=== PATIENT | male | born 1960 | race Caucasian/White ===

== ENCOUNTER → 2017-04-14 | Outpatient (CLI) | payer BC ==
[~2017-04-14] VITALS: Ht 182.9 cm; Wt 124.6 kg
[~2017-04-14] MED LIST: ACETAMINOPHEN325 M1 PO; ADULT LOW DOSE81 MG PO; AMITRIPTYLINE H25 M4 PO; ANDROGEL5 GM; ATORVASTATIN CA40 MG PO; BENTYL10 MG PO; BISACODYL SUPP10 MG RE; BYSTOLIC10 MG PO; CARVEDILOL6.25 MG PO; CIALIS20 MG PO; CIPROFLOXACIN500 M1 PO; CITRATE OF MAG296 ML PO; CO Q-10100 MG PO; CO Q-10400 MG PO; COLACE 100 MG100 MG PO; COLACE100 MG PO; CRESTOR20 MG PO; CYCLOBENZAPRINE10 MG PO; DAILY VALUE1 EACH PO; DILAUDID 4 MG TA4 M1 PO; DULCOLAX PO; DULCOLAX5 MG PO; EFFIENT10 MG PO; FENTANYL PA25 MCG/HR TP; FENTANYL PA50 MCG/HR TP; FISH OIL 1,001000 M1 PO; FISHOIL; FLONASE; HYDROCODON-ACE1 EAC5 PO; HYDROCODON-ACE1 EACH PO; HYDROCODONE-AP1 EACH PO; IBUPROFEN 200200 M1 PO; IMITREX 25 MG T25 MG PO; LANSOPRAZOLE30 M1 PO; LEVOTHYROXIN0.025 MG PO; LEVOTHYROXINE0.2 M1; LEVOTHYROXINE0.2 M1 PO; LOVENOX; MAGIC CUP PO; MAGOX 400400 MG PO; MELOXICAM7.5 MG PO; MOBIC15 MG PO; MOBIC7.5 MG PO; MULTAQ 400 MG400 MG PO; MULTIVITAMINS; MULTIVITAMINS OR; MYLANTA 12 OZ355 M1 GT; NABUMETONE 500500 M1 PO; NABUMETONE 750750 M1 PO; NAPROSYN375 MG PO; NAPROSYN500 MG PO; NAPROXEN 375 M375 M1 PO; NAPROXEN DELAY500 M1 PO; NEURONTIN600 MG PO; NORCO 10-325 T1 EACH PO; NORCO 5-325 TA1 EACH PO; NORCO 7.5-3251 EACH PO; NUCYNTA75 MG PO; NUGENIX PO; OMEPRAZOLE; OMEPRAZOLE 20 M20 M1 PO; OMEPRAZOLE40 MG PO; OPANA10 MG PO; ORAJEL10 GM; OXYCODONE HCL20 M1 PO; OXYCODONE HCL5 M1 PO; PEPCID AC20 M1 PO; PERCOCET 10-321 EACH PO; PERCOCET 5-3251 EACH PO; PRILOSEC 20 MG20 MG PO; PROZAC 20 MG20 M1 PO; REMERON15 M1 PO; ROXICODONE5 M1 PO; SYNTHROID175 MCG PO; TEKTURNA300 MG PO; VICODIN 5-5001 EACH PO; VITAMIN B-12500 MCG PO; VITAMIN D 5050000 I1 PO; VITAMIN D400 UNI1 PO; VITAMIN E 400I400 I1 PO; VITAMINC500 PO; VOLTAREN GEL 1100 G2 TOP; XANAX 0.25 MG0.25 MG PO; XANAX 0.5 MG0.5 M1 PO; ZESTRIL5 MG PO; ZETIA10 MG PO; ZINC SULFATE 2220 M1 PO; ZOCOR 10 MG TAB10 MG PO; ZOFRAN4 MG PO
--- NOTE | ~2017-04-14 | HPC ---
[facility] [address] PAIN MANAGEMENT CONSULTATION Name: COOPER PURCELL Room #: REG [facility].#: [id number] Admission: 04/14/17 Attend Phys: Mane Parekh MD Discharge: Date of : 64 Report #: [id number] THIS REPORT FOR: //name// CC: Jose Love The patient was seen on 04/14/[address] Navid Parekh. PRIMARY CARE PHYSICIAN: Jose Zapata MD. FOLLOWUP HISTORY: Bilateral shoulder pain and osteoarthritis in the shoulders. FOLLOWUP HISTORY: The patient is a 57-year-old gentleman who has been followed in the pain clinic because of bilateral shoulder pain. He also has low back pain. These are chronic. He rates his pain between a 6 and 9. He notes that there is some aching and throbbing sensations associated with this. He notes his pain is exacerbated when he lifts his arms. He finds that his medications are helpful. The patient states that the hydrocodone medication is helpful. It does not cause him any confusion. He is able to function without problem. He also states he uses a nonsteroidal anti-inflammatory medication. He is on a medication for stent placement. He uses Effient 10 mg daily. ALLERGIES: He states that he is allergic to morphine. CURRENT MEDICATIONS: He states his current medications are hydrocodone, Multaq, Lipitor, Effient, Naprosyn, levothyroxine, omeprazole, alprazolam, Bystolic, aspirin and an [place] 3 medication. PHYSICAL EXAMINATION: Blood pressure 140/83, pulse 77, respiratory rate 20, room air saturation 97%. The patient has pain and discomfort involving his shoulders. IMPRESSION: 1. History of gastroesophageal reflux disease. 2. History of hiatal hernia. 3. Hodgkin's lymphoma treated with chemo 1992. 4. Left total hip replacement x 2, right total hip x 3. 5. Lumbar herniated disk surgery. 6. Bo fundoplication. 7. Hypothyroidism. 8. Atrial fibrillation with rapid ventricular response in the past. 9. Sleep apnea. RECOMMENDATIONS: We discussed treatment options with the patient. At this juncture, we will refill his hydrocodone medication. A script for his [facility] [place] [address] PAIN MANAGEMENT CONSULTATION Name: COOPER PURCELL [facility] [id number] Admission: 04/14/17 Attend Phys: Mane Parekh MD Discharge: Date of : 64 Report #: [id number] hydrocodone 10/325, total of 240 tablets were reissued. The patient will follow up in the near future with Dr. Hendrix. We would like to thank you for letting us participate in his care. We hope he continues to improve. Thanks very much for letting us participate in his care. Hopefully, he continues to improve. By: [id number] MD josey Ordonez
[2017-04-14 14:28] VITALS: BP 140/83
== END ==
LOC: PAIN 06:37
DX: M25.512 Pain in left shoulder (principal); M25.511 Pain in right shoulder; M19.012 Primary osteoarthritis, left shoulder; M19.011 Primary osteoarthritis, right shoulder; Z79.82 Long term (current) use of aspirin; K21.9 Gastro-esophageal reflux disease without esophagitis; K44.9 Diaphragmatic hernia without obstruction or gangrene; C81.90 Hodgkin lymphoma, unspecified, unspecified site; Z96.643 Presence of artificial hip joint, bilateral; E03.9 Hypothyroidism, unspecified; I48.91 Unspecified atrial fibrillation; G47.33 Obstructive sleep apnea (adult) (pediatric); I10 Essential (primary) hypertension

== ENCOUNTER → 2017-05-23 | Outpatient (CLI) | payer BC ==
[~2017-05-23] VITALS: Ht 185.4 cm; Wt 125.0 kg
[2017-05-23 14:16] VITALS: BP 154/87
== END | disposition home or self-care (01) ==
LOC: PAIN 07:25
DX: M19.011 Primary osteoarthritis, right shoulder (principal); M19.012 Primary osteoarthritis, left shoulder; G89.4 Chronic pain syndrome; M54.9 Dorsalgia, unspecified; M54.16 Radiculopathy, lumbar region; M51.36 Other intervertebral disc degeneration, lumbar region; I48.92 Unspecified atrial flutter; I10 Essential (primary) hypertension; K21.9 Gastro-esophageal reflux disease without esophagitis; E03.9 Hypothyroidism, unspecified; F11.20 Opioid dependence, uncomplicated; Z88.8 Allergy status to other drugs, medicaments and biological substances; Z98.890 Other specified postprocedural states; Z79.899 Other long term (current) drug therapy; Z79.82 Long term (current) use of aspirin

== ENCOUNTER → 2017-07-05 | Outpatient (CLI) | payer BC ==
[~2017-07-05] VITALS: Ht 185.4 cm; Wt 126.4 kg
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
[2017-07-05 09:06] VITALS: BP 137/98
== END | disposition home or self-care (01) ==
LOC: PAIN 08:06
DX: M19.012 Primary osteoarthritis, left shoulder (principal); M19.011 Primary osteoarthritis, right shoulder; F11.20 Opioid dependence, uncomplicated; G89.29 Other chronic pain; Z68.36 Body mass index [BMI] 36.0-36.9, adult; Z79.899 Other long term (current) drug therapy; Z88.8 Allergy status to other drugs, medicaments and biological substances

== ENCOUNTER → 2019-11-22 | Outpatient (CLI) | payer OTHER | LOC: RAD 09:23 | DX: R06.02 Shortness of breath (principal) ==

== ENCOUNTER → 2020-08-20 | Outpatient (CLI) | payer OTHER ==
[~2020-08-20] MED LIST changes: +IRON325 M1 PO; +TOPROL XL25 MG PO
== END ==
LOC: LAB 14:32
PROVIDERS: ATTEND Internal Medicine Cardiovascular Disease
DX: Z01.812 Encounter for preprocedural laboratory examination (principal); Z20.828 Contact with and (suspected) exposure to other viral communicable diseases

== ENCOUNTER → 2020-08-24 | Outpatient (CLI) | payer OTHER ==
[~2020-08-24] VITALS: Ht 188 cm; Wt 127.0 kg
[2020-08-24 07:37] VITALS: BP 100/53
[2020-08-24 07:56] LABS: HEMATOCRIT 36.8 % (42.0-52.0); HEMOGLOBIN 11.6 gm/dL (14.0-18.0); MCH 33.6 pg (26.0-34.0); MCHC 31.5 g/dL (28.0-37.0); MCV 106.7 fL (80.0-100.0); RBC 3.45 mil/uL (4.50-6.00); RDW 15.7 % (10.5-14.5); WBC 5.5 thou/uL (4.0-11.0)
[2020-08-24 08:01] LABS: APTT 32.9 Seconds (24.5-32.8); INR 1.1; PROTIME 11.2 Seconds (9.3-11.4)
[2020-08-24 08:06] LABS: CALCIUM 8.9 mg/dL (8.5-10.1); CREATININE 1.2 mg/dL (0.7-1.3); POTASSIUM 4.7 mmol/L (3.5-5.1)
[2020-08-24 08:09] LABS: ALBUMIN 3.5 g/dL (3.4-5.0); TOTAL BILIRUBIN 0.4 mg/dL (0.2-1.0)
--- NOTE | 2020-08-27 13:36 | P ---
[facility] [place] [address] PROCEDURE REPORT Name: COOPER PURCELL Room #: REG [facility].#: [id number] Admission: 08/24/20 Attend Phys: Héctor Emanuel MD Discharge: Date of : 64 Report #: [id number] THIS REPORT FOR: cc: Jose Zapata MD, FAAFP, FACEP, Douglas MD FAAFP FACEP Couchonnal,Héctor Delaney MD ~ CC: Jose Emanuel DATE OF SERVICE: 08/24/2020 PROCEDURE: Cardioversion. PREOPERATIVE DIAGNOSIS: Atrial fibrillation. POSTOPERATIVE DIAGNOSIS: Atrial fibrillation. PROCEDURE PERFORMED: The patient underwent informed consent. He was prepped in the standard fashion. The patient was sedated by the Anesthesiology service. Once sedated, he underwent 200 joules synchronized cardioversion with baptism of sinus rhythm. There were no procedure-related complications. CONCLUSIONS: Successful DC cardioversion with baptism of sinus rhythm. <ELECTRONICALLY SIGNED> By: Héctor Emanuel MD 08/27/20 1336 0840 0855 Héctor Emanuel MD /nt
== END | disposition home or self-care (01) ==
LOC: CATH 06:39
PROVIDERS: ATTEND Internal Medicine Cardiovascular Disease
DX: I48.91 Unspecified atrial fibrillation (principal); I10 Essential (primary) hypertension; E78.5 Hyperlipidemia, unspecified; I48.92 Unspecified atrial flutter; Z98.890 Other specified postprocedural states; Z79.899 Other long term (current) drug therapy; Z96.643 Presence of artificial hip joint, bilateral; Z85.72 Personal history of non-Hodgkin lymphomas; Z88.8 Allergy status to other drugs, medicaments and biological substances
CPT/HCPCS: 62110; 62900

== ENCOUNTER → 2021-04-13 | Outpatient (CLI) | payer OTHER ==
--- NOTE | 2021-04-13 08:34 | NUR ---
0800-[employer] REP AT BEDSIDE WITH PT EXPLAINING HOW DEVICE WORKS AND SHOWING PT HOW TO USE ONCE PT LEAVES TODAY. ALL QUESTIONS ANSWERED. 0810- IN WITH PT TO START IMPLANT OF DEVICE, VSS. 08-PROCEDURE COMPLETE, NO COMPLAINTS FROM PT. LEFT UPPER CHEST WITH TRANSPARENT DRESSING AND GAUZE, C/D/I. [employer] LINQ [id number] IMPLANTED. 0830-PT DRESSED AND DEVICE BOX GIVEN TO PT, PT DISCHARGED HOME.
--- NOTE | 2021-04-15 09:32 | P ---
[facility] [place] [address] PROCEDURE REPORT Name: COOPER PURCELL Room #: REG [facility].#: [id number] Admission: 04/13/21 Attend Phys: Héctor Emanuel MD Discharge: Date of : 64 Report #: [id number] THIS REPORT FOR: cc: Jose Zapata MD Jose Mullins MD SAVANNAH Emanuel,Héctor Delaney MD ~ DOC #: [id number] Héctor Emanuel MD DATE OF SERVICE: 04/13/2021 PREOPERATIVE DIAGNOSES: 1. Atrial fibrillation. 2. Palpitations. POSTOPERATIVE DIAGNOSES: 1. Atrial fibrillation. 2. Palpitations. DESCRIPTION OF PROCEDURE: The patient underwent informed consent. He was prepped in a standard fashion. I injected lidocaine at the incision site. Incision was made. Device injected under the skin. I tested and found to be functioning normally. A single layer of suture was performed and surgical glue was placed to the outer skin layer. The patient had no procedure related complications. The implanted device was a [employer] model #34346, serial #[id number]. CONCLUSION: Successful implantation of an implantable loop recorder. MD NATHANIEL Flynn/WESTON <ELECTRONICALLY SIGNED> By: Héctor Emanuel MD 04/15/21 0932 1400 2118 Héctor Emanuel MD /nt
== END | disposition home or self-care (01) ==
LOC: CATH 07:22
PROVIDERS: ATTEND Internal Medicine Cardiovascular Disease
DX: I48.91 Unspecified atrial fibrillation (principal); R00.2 Palpitations; I48.92 Unspecified atrial flutter; Z98.890 Other specified postprocedural states; Z79.899 Other long term (current) drug therapy; Z88.8 Allergy status to other drugs, medicaments and biological substances; Z79.01 Long term (current) use of anticoagulants

== ENCOUNTER → 2021-05-27 | Outpatient (CLI) | payer OTHER | LOC: SJCVCIMAG 08:11 | PROVIDERS: ATTEND Internal Medicine Cardiovascular Disease | DX: I48.91 Unspecified atrial fibrillation (principal); Z01.810 Encounter for preprocedural cardiovascular examination; I25.10 Atherosclerotic heart disease of native coronary artery without angina pectoris; R00.2 Palpitations; E66.9 Obesity, unspecified; I10 Essential (primary) hypertension; R06.00 Dyspnea, unspecified; Z79.899 Other long term (current) drug therapy; Z88.5 Allergy status to narcotic agent; Z88.8 Allergy status to other drugs, medicaments and biological substances ==

== ENCOUNTER → 2021-09-15 | Outpatient (CLI) | payer OTHER ==
[~2021-09-15] VITALS: Ht 182.9 cm; Wt 145.1 kg
[~2021-09-15] MED LIST changes: +CEPHALEXIN500 MG PO; +DILTIAZEM ER180 M2 PO; +ELIQUIS5 MG PO; +FOLIC ACID1 MG PO; +FUROSEMIDE 20 M20 MG PO; +LEVOTHYROXINE200 MC2 PO; +LIPITOR40 MG PO; +LYRICA 50 MG50 MG PO; +NAPROSYN500 M1 PO; +VITAMIN B-1100 M2 PO
--- NOTE | ~2021-09-15 | P ---
[facility] [place] [address] PROCEDURE REPORT Name: COOPER PURCELL Room #: REG [facility].#: [id number] Admission: 09/15/21 Attend Phys: Héctor Emanuel MD Discharge: Date of : 64 Report #: [id number] THIS REPORT FOR: cc: Jose Zapata MD, FAAFP, FACEP, Douglas MD FAAFP FACEP Couchonnal, Luis F. MD ~ DATE OF SERVICE: 09/15/2021 PROCEDURE: Cardioversion. PREOPERATIVE DIAGNOSIS: Atrial fibrillation. POSTOPERATIVE DIAGNOSIS: Atrial fibrillation. DESCRIPTION OF PROCEDURE: The patient underwent informed consent. He was prepped and draped in a standard fashion. Patches placed in AP position. He was then sedated by the Anesthesiology Service and underwent a 200 joule synchronized cardioversion with uatsdin of sinus rhythm. There were no procedure-related complications. CONCLUSION: Successful DC cardioversion with uatsdin of sinus rhythm. By: 1034 2219 Héctor Emanuel MD /nt
[2021-09-15 10:27] VITALS: BP 127/70
[2021-09-15 10:27] LABS: CALCIUM 8.2 mg/dL (8.5-10.1); CREATININE 1.3 mg/dL (0.7-1.3); POTASSIUM 4.1 mmol/L (3.5-5.1)
[2021-09-15 10:30] LABS: INR 1.13; PROTIME 12.2 Seconds (10.5-12.1)
[2021-09-15 10:33] LABS: ALBUMIN 3.5 g/dL (3.4-5.0); TOTAL BILIRUBIN 0.4 mg/dL (0.2-1.0); TOTAL PROTEIN 6.8 g/dL (6.4-8.2)
[2021-09-15 10:36] LABS: ABSOLUTE NEUTROPHILS 3.5 thou/uL (1.4-8.2); BASOPHILS 0.7 % (0.0-2.0); EOSINOPHILS 1.6 % (0.0-3.0); HEMATOCRIT 36.1 % (42.0-52.0); HEMOGLOBIN 11.9 gm/dL (14.0-18.0); LYMPHOCYTES 16.2 % (24.0-44.0); MCHC 32.9 g/dL (28.0-37.0); MCV 109.2 fL (80.0-100.0); MONOCYTES 16.2 % (1.0-8.0); PLATELET COUNT 247 thou/uL (150-400); POLYS 65.3 % (36.0-66.0); RBC 3.31 mil/uL (4.50-6.00); RDW 14.6 % (10.5-14.5); WBC 5.3 thou/uL (4.0-11.0)
[2021-09-15 13:51] LABS: MACROCYTES 1+
--- NOTE | 2021-09-15 14:21 | EKG ---
[place] [address] [facility] [place] [address] ELECTROCARDIOGRAM REPORT Name: COOPER PURCELL Room #: [facility]#: [id number] Admission: 09/15/21 Attend Phys: Héctor Emanuel MD Discharge: Date of : 64 Report #: [id number] [facility] Test Date: 2021-09-15 Test Time: 12:19:18 Pat Name: COOPER PURCELL Department: Room: Gender: M Sheet Metal Technician: [facility] : 1960 Requested By: Héctor Emanuel Order Number: [id number] MD: Jimmy Laguna Measurements Intervals [place] Rate: 97 P: 49 MT: 168 QRS: 96 QRSD: 86 T: 28 QT: 370 QTc: 470 Interpretive Statements Sinus rhythm Probable left atrial enlargement Borderline right axis deviation Borderline low voltage, extremity leads Compared to ECG 05/13/2016 07:47:04 ST (T wave) deviation no longer present Electronically Signed On 09-15-2021 14:21:07 CDT by Jimmy Laguna [email or web address] <ELECTRONICALLY SIGNED> By: Jimmy Laguna MD, [facility] 09/15/21 1421 1219 1219 Jimmy Laguna MD, [facility] /EPI
== END | disposition home or self-care (01) ==
LOC: CATH 06:24
PROVIDERS: ATTEND Internal Medicine Cardiovascular Disease
DX: I48.91 Unspecified atrial fibrillation (principal); I10 Essential (primary) hypertension; E03.9 Hypothyroidism, unspecified; K21.9 Gastro-esophageal reflux disease without esophagitis; I25.10 Atherosclerotic heart disease of native coronary artery without angina pectoris; Z98.890 Other specified postprocedural states; Z79.899 Other long term (current) drug therapy; Z20.822 Contact with and (suspected) exposure to COVID-19; Z96.643 Presence of artificial hip joint, bilateral; Z82.49 Family history of ischemic heart disease and other diseases of the circulatory system; Z85.72 Personal history of non-Hodgkin lymphomas; Z79.01 Long term (current) use of anticoagulants; Z96.611 Presence of right artificial shoulder joint; Z96.612 Presence of left artificial shoulder joint; Z88.8 Allergy status to other drugs, medicaments and biological substances
CPT/HCPCS: 62110; 62900

== ENCOUNTER → 2021-10-14 | Outpatient (CLI) | payer OTHER | LOC: CAT 10-13 16:17 | PROVIDERS: ATTEND Internal Medicine Cardiovascular Disease | DX: Z01.818 Encounter for other preprocedural examination (principal); I48.91 Unspecified atrial fibrillation; I25.10 Atherosclerotic heart disease of native coronary artery without angina pectoris; I70.0 Atherosclerosis of aorta; J98.11 Atelectasis; K44.9 Diaphragmatic hernia without obstruction or gangrene; M47.814 Spondylosis without myelopathy or radiculopathy, thoracic region ==

== ENCOUNTER 2021-10-18 06:43 | Observation (INO) | payer OTHER ==
[~2021-10-18] VITALS: Ht 182.9 cm; Wt 148.3 kg
[2021-10-18 07:45] LABS: ABSOLUTE NEUTROPHILS 4.1 thou/uL (1.4-8.2); BASOPHILS 1.4 % (0.0-2.0); EOSINOPHILS 2.3 % (0.0-3.0); HEMATOCRIT 37.8 % (42.0-52.0); HEMOGLOBIN 12.2 gm/dL (14.0-18.0); LYMPHOCYTES 16.8 % (24.0-44.0); MCH 35.6 pg (26.0-34.0); MCHC 32.3 g/dL (28.0-37.0); MCV 110.1 fL (80.0-100.0); MONOCYTES 16.1 % (1.0-8.0); PLATELET COUNT 236 thou/uL (150-400); POLYS 63.4 % (36.0-66.0); RBC 3.43 mil/uL (4.50-6.00); RDW 15.5 % (10.5-14.5); WBC 6.4 thou/uL (4.0-11.0)
[2021-10-18 07:48] VITALS: BP 82/47
[2021-10-18] MEDS ORDERED: PRILOSEC OTC20 MG PO (08:01)
[2021-10-18 08:12] LABS: CALCIUM 8.3 mg/dL (8.5-10.1); CREATININE 1.5 mg/dL (0.7-1.3); POTASSIUM 4.1 mmol/L (3.5-5.1)
[2021-10-18 08:18] LABS: APTT 27.7 Seconds (24.5-32.8); INR 1.08; PROTIME 11.7 Seconds (10.5-12.1)
[2021-10-18 08:19] LABS: ALBUMIN 3.8 g/dL (3.4-5.0); TOTAL BILIRUBIN 0.6 mg/dL (0.2-1.0); TOTAL PROTEIN 7.1 g/dL (6.4-8.2)
[2021-10-18 09:55] LABS: ANISOCYTOSIS 1+; MACROCYTES 2+; PLATELET ESTIMATE NORMAL; POLYCHROMASIA SLIGHT
[2021-10-18 14:52] VITALS: BP 114/68
[2021-10-18] MEDS ORDERED: ASPIRIN325 PO (15:43)
--- NOTE | 2021-10-18 17:09 | NUR ---
Patient arrived on CCU at 1452. Patient is alert/oriented, complains of mild headache not requiring intervention, and on bedrest until 1515 per cath lab nurse RN. Right femoral sheath site is c/d/i, soft to palpation, and no evidence of a hematoma. Post-right radial art line removal site is c/d/i, no s/s of bleeding or hematoma noted. Patient is in RSR with no complaints of chest pain or pressure. Plan is to monitor patient overnight with likely discharge to home tomorrow morning.
[2021-10-18 19:35] VITALS: BP 153/96
--- NOTE | 2021-10-19 04:13 | NUR ---
RECEIVED THE PATIENT AT 1900H.PATIENT IS ALERT AND ORIENTED X4.ON ROOM AIR BREATHING SPONTANEOSULY.SINUS RYTHM ON THE MONITOR.WITH RIGHT GROIN COVERED WITH DRESSING C/D/I, NO HEMATOMA OR ANY COMPLICATIONS NOTED FROM THE SITE.MEDS AGIVEN PER.ALL NEEDS ATTENDED.TO CONTINOUSLY MONITOR.
[2021-10-19 04:38] VITALS: BP 116/78
[2021-10-19 07:24] VITALS: BP 146/79
[2021-10-19 09:52] VITALS: BP 146/79
--- NOTE | 2021-10-19 10:13 | NUR ---
DISCHARGED PATIENT. EXPLAINED DISCHARGED INSTRUCTIONS TO PATIENT. HIGHLIGHTED UPCOMING APPOINTMENTS. EXPLAINED MEDICATION CHANGES. PT STATED HE UNDERSTOOD AND DENIED ANY ADDITIONAL QUESTIONS. REMOVED IV, TIP WAS INTACT. PT TAKING OUT VIA WHEEL CHAIR.
--- NOTE | 2021-10-29 12:48 | P ---
[facility] [place] [address] PROCEDURE REPORT Name: COOPER PURCELL Room #: 203-P [facility] Jade Daugherty#: [id number] Admission: 10/18/21 Attend Phys: Héctor Emanuel MD Discharge: 10/19/21 Date of : 64 Report #: [id number] THIS REPORT FOR: cc: Jose Zapata MD, FAAFP, FACEP, Douglas MD FAAFP FACEP Couchonnal, Luis F. MD ~ DATE OF SERVICE: 10/18/2021 PROCEDURES PERFORMED: 1. Atrial ablation, CPT code 94147. 2. 3D mapping, CPT code 61656. 3. Intracardiac echo, CPT code 56361. 4. Focal ablation, CPT code 96083. PREOPERATIVE DIAGNOSIS: Atrial fibrillation. POSTOPERATIVE DIAGNOSIS: Atrial fibrillation. HISTORY: The patient is a 61-year-old with history of recurrent AFib despite antiarrhythmic drugs therapy here for an ablation. DESCRIPTION OF PROCEDURE: The patient was brought to the EP laboratory in a fasting and nonsedated state, prepped and draped in a standard fashion. I obtained access to the right femoral vein x 3, placing an 8, 9, and 7-[place] short sheath using the modified Seldinger technique. At baseline, the patient was noted to be in atrial fibrillation. Under fluoroscopy, I placed a decapolar catheter into the coronary sinus and an ICE catheter was into the right atrium. The patient was systemically heparinized and a transseptal was performed using an SL1 sheath and [place] needle and this was straightforward. I then exchanged for the cryosheath and placed a Lasso catheter in the left atrium. A 3D voltage map of the left atrium was created. Next, I started by isolating the pulmonary veins. The left superior pulmonary vein underwent a 4-minute freeze followed by a 5-minute freeze and it did not appear to isolated. I therefore moved to the left inferior pulmonary vein and performed a 5-minute freeze, which resulted in isolation at 130 seconds. When I went back to check the left superior pulmonary vein, it appeared to be isolated. I then went to the right superior pulmonary vein and performed a 3-minute freeze, which isolated the vein at 30 seconds. The right inferior pulmonary vein underwent two 4-minute freezes and isolated during the second freeze at 90 seconds. I then remapped the veins and it appeared that the left superior and left inferior pulmonary veins had reconnected and it appeared that this area of connection was at the karolina. Therefore, I performed an additional 4-minute freeze along the karolina, which resulted in isolation at 59 seconds. Posterior wall isolation: The patient was then prepped for posterior wall isolation. I performed a total of 5 freezes anchored from the left [address] [address] PROCEDURE REPORT Name: COOPER PURCELL Room #: 203-P [facility] Jade Daugherty#: [id number] Admission: 10/18/21 Attend Phys: Héctor Emanuel MD Discharge: 10/19/21 Date of : 64 Report #: [id number] pulmonary vein and 3 freezes anchored from the left inferior pulmonary vein, each freeze was of 3 minutes' duration and esophageal temperature was monitored and found to be within normal limits. Post isolation, the patient underwent successful DC cardioversion with the judaism of sinus rhythm. A 3D voltage map was created showing that the veins and posterior wall were now isolated. The patient was now in sinus rhythm. There were no other arrhythmias noted and the procedure was concluded. The patient received systemic protamine and catheters and sheaths were pulled. The patient awoke neurologically and hemodynamically intact. No complications. No significant bleeding. CONCLUSION: 1. Successful AFib ablation with isolation of the pulmonary veins. 2. Successful posterior wall isolation. <ELECTRONICALLY SIGNED> By: Héctor Emanuel MD 10/29/21 1248 1201 2324 Héctor Emanuel MD /nt
== END 2021-10-19 10:49 | disposition home or self-care (01) ==
LOC: CATH → 2N 15:24
PROVIDERS: ADMIT Internal Medicine Cardiovascular Disease; ATTEND Internal Medicine Cardiovascular Disease
DX: I48.0 Paroxysmal atrial fibrillation (principal); Z20.822 Contact with and (suspected) exposure to COVID-19; I25.10 Atherosclerotic heart disease of native coronary artery without angina pectoris; I10 Essential (primary) hypertension; E03.9 Hypothyroidism, unspecified; E66.9 Obesity, unspecified; C81.90 Hodgkin lymphoma, unspecified, unspecified site; I48.92 Unspecified atrial flutter; K21.9 Gastro-esophageal reflux disease without esophagitis; I47.1 Supraventricular tachycardia; Z79.82 Long term (current) use of aspirin; Z79.899 Other long term (current) drug therapy
CPT/HCPCS: 62110; 62900; 65020; 65040; 70005